=== PATIENT | male | born 1985 | race Caucasian/White ===

== ENCOUNTER 2021-07-25 13:31 | Emergency (ER) | payer OTHER ==
[2021-07-25] MEDS ORDERED: DIPHTH,PERTUSS(ACELL),TET 0.5 ML DISP.SYRIN IM ONE ×2 (13:33→14:30)
[2021-07-25 13:37] VITALS: BP 127/77; PULSE 79; TEMP 98.4; BMI 25.8
[2021-07-25] MEDS ORDERED: TETRACAINE 0.5% OPHTH SOLN 2 ML BOTTLE ONE (13:38)
[2021-07-25] MEDS ORDERED: FLUORESCEIN NA 1 EA STRIP ONE (13:38)
[2021-07-25] MEDS ORDERED: ERYTHROMYCIN 0.5% OPHTHALMIC OINTMENT 3.5 GM TUBE OD ONE (15:30)
[2021-07-25] MEDS ORDERED: ERYTHROMYCIN 0.5% OPHTHALMIC OINTMENT 3.5 GM TUBE ONE (15:33)
== END 2021-07-25 15:35 | disposition home or self-care (01) ==
LOC: FER 13:31
PROC: 0HQGXZZ Repair Left Hand Skin, External Approach (ICD-10-PCS; principal; 2021-07-25)
PROC: 3E0234Z Introduction of Serum, Toxoid and Vaccine into Muscle, Percutaneous Approach (ICD-10-PCS; 2021-07-25)
DX: S61.012A Laceration without foreign body of left thumb without damage to nail, initial encounter (principal); H10.211 Acute toxic conjunctivitis, right eye; W23.0XXA Caught, crushed, jammed, or pinched between moving objects, initial encounter
CPT/HCPCS: 73140-TC-LT-FY; 90715; 99283-25